=== PATIENT | male | born 1995 | race African-American/Black ===

== ENCOUNTER 2017-02-15 09:26 | Emergency (ER) | payer BC ==
[2017-02-15] MEDS ORDERED: Diphtheria,Pertussis(Acell),Tetanus Vaccine 0.5 ML Syringe IM ONE (09:37)
[2017-02-15] MEDS ORDERED: Lidocaine 1% 20 ML MDV INJECT ONE (09:37)
--- NOTE | 2017-02-15 10:01 | EDM.PDOC ---
ED HPI Skin/Rash - General Chief Complaint: Laceration Stated Complaint: CUT ON HAND Time Seen by Provider: 02/15/17 09:58 - History of Present Illness INITIAL COMMENTS - FREE TEXT/NARRATIVE: HISTORY AND PHYSICAL: History of present illness: 22-year-old white male presents with a laceration to his left forearm this occurred when he fell he denies any other trauma or concern tonight is up to date tetanus Review of systems: As per history of present illness and below otherwise all systems reviewed and negative. Past medical history: As per history of present illness and as reviewed below otherwise noncontributory. Surgical history: As per history of present illness and as reviewed below otherwise noncontributory. Social history: No reported history of drug or alcohol abuse. Family history: As per history of present illness and as reviewed below otherwise noncontributory. Physical exam: HEENT: Atraumatic, normocephalic, pupils reactive, negative for conjunctival pallor or scleral icterus, mucous membranes moist, throat clear, neck supple, nontender, trachea midline. Lungs: Clear to auscultation, breath sounds equal bilaterally, chest nontender. Heart: S1S2, regular, negative for clicks, rubs, or JVD. Abdomen: Soft, nondistended, nontender. Negative for masses or hepatosplenomegaly. Negative for costovertebral tenderness. Pelvis: Stable nontender. Genitourinary: Deferred. Rectal: Deferred. Extremities: Patient has an irregular moderate depth laceration volar aspect of distal third of his left forearm the length of this laceration is approximately 3 cm with good hemostasis noted involvement CMS neurovascular exam is unremarkable Neuro: Awake, alert, oriented. Cranial nerves II through XII unremarkable. Cerebellum unremarkable. Motor and sensory unremarkable throughout. Exam nonfocal. Diagnostics: None Therapeutics: 5 TD IM patient was anesthetized 1% lidocaine without epinephrine irrigated with copious amounts 0.9 normal saline prepped and draped in sterile manner closed with 4-0 interrupted suture bacitracin dressing was applied Impression: #1 laceration left forearm Definitive disposition and diagnosis as appropriate pending reevaluation and review of above. - Related Data Allergies Allergy/AdvReac Type Severity Reaction Status Date / Time Sulfa (Sulfonamide Allergy Other Verified 02/15/17 09:30 Antibiotics) Home Meds: Ambulatory Orders Medication Instructions Recorded Confirmed . [No Known Home Meds] 02/15/17 02/15/17 Past Medical History - Past Health History Medical/Surgical History: Denies Medical/Surgical History Social & Family History - Tobacco Use Smoking Status *Q: Never Smoker Second Hand Smoke Exposure: No - Caffeine Use Caffeine Use: Reports: Coffee, Soda - Recreational Drug Use Recreational Drug Use: No ED ROS GENERAL - Review of Systems Review Of Systems: ROS reveals no pertinent complaints other than HPI. ED EXAM, SKIN/RASH Exam: See Below (See dictation) Course - Vital Signs Last Recorded V/S: Last Vital Signs Temp 36.6 C 02/15/17 09:30 Pulse 86 02/15/17 09:30 Resp 18 02/15/17 09:30 BP 138/75 02/15/17 09:30 Pulse Ox 96 02/15/17 09:30 - Orders/Labs/Meds Orders: Active Orders 24 hr Category Date Time Status Vaccines to be Administered [RC] PER UNIT ROUTINE Care 02/15/17 09:38 Active Meds: Medications Discontinued Medications Generic Name Dose Route Start Last Admin Trade Name Tierra PRN Reason Stop Dose Admin Diphtheria/Tetanus/Acell Pertussis 0.5 ml 02/15/17 09:37 02/15/17 09:58 Adacel IM 02/15/17 09:38 0.5 ml .ONCE ONE Administration Lidocaine HCl 20 ml 02/15/17 09:37 02/15/17 09:58 Xylocaine 1% INJECT 02/15/17 09:38 20 ml ONETIME ONE Administration Departure - Departure Time of Disposition: 10:01 Disposition: Home, Self-Care 01 Condition: good Clinical Impression: Laceration Forms: ED Department Discharge Additional Instructions: The following information is given to patients seen in the emergency department who are being discharged to home. This information is to outline your options for follow-up care. We provide all patients seen in our emergency department with a follow-up referral. The need for follow-up, as well as the timing and circumstances, are variable depending upon the specifics of your emergency department visit. If you don't have a primary care physician on staff, we will provide you with a referral. We always advise you to contact your personal physician following an emergency department visit to inform them of the circumstance of the visit and for follow-up with them and/or the need for any referrals to a consulting specialist. The emergency department will also refer you to a specialist when appropriate. This referral assures that you have the opportunity for followup care with a specialist. All of these measure are taken in an effort to provide you with optimal care, which includes your followup. Under all circumstances we always encourage you to contact your private physician who remains a resource for coordinating your care. When calling for followup care, please make the office aware that this follow-up is from your recent emergency room visit. If for any reason you are refused follow-up, please contact the [facility] emergency department at and asked to speak to the emergency department charge nurse. Followup primary medical doctor 24-48 hours suture removal 10-14 days return as needed as discussed - My Orders Last 24 Hours: My Active Orders 02/15/17 09:38 Vaccines to be Administered [RC] PER UNIT ROUTINE - Assessment/Plan Last 24 Hours: My Active Orders 02/15/17 09:38 Vaccines to be Administered [RC] PER UNIT ROUTINE
[2017-02-15 10:32] VITALS: BP 144/65
== END 2017-02-15 10:15 | disposition home or self-care (01) ==
LOC: MW.ED 09:26
DX: S51.812A Laceration without foreign body of left forearm, initial encounter (principal); Z88.2 Allergy status to sulfonamides; Z23 Encounter for immunization; W10.9XXA Fall (on) (from) unspecified stairs and steps, initial encounter
CPT/HCPCS: 12002; 90471; 90715; 99282; 99282-25

== ENCOUNTER 2017-05-31 07:32 | Emergency (ER) | payer BC ==
[2017-05-31 07:55] VITALS: BP 158/67
--- NOTE | 2017-05-31 08:11 | EDM.PDOC ---
ED HPI GENERAL MEDICAL PROBLEM - General Chief Complaint: Skin Complaint Stated Complaint: RASH Time Seen by Provider: 05/31/17 08:04 - History of Present Illness INITIAL COMMENTS - FREE TEXT/NARRATIVE: HISTORY AND PHYSICAL: History of present illness: The patient is a healthy 22-year-old male who presents with complaints of a bump in his inguinal pubic area that has been there for several weeks. It has not been painful it has not drained any fluid and he says he has been practicing safe sex. He has no systemic complaints of fever chills burning with urination penile discharge testicular pain or swelling or abdominal complaints. He has no rashes elsewhere on his body. He has noticed a second one that surface just a few days ago and again not painful with no drainage. He otherwise has been eating and drinking normally and without fevers Review of systems: As per history of present illness and below otherwise all systems reviewed and negative. Past medical history: As per history of present illness and as reviewed below otherwise noncontributory. Surgical history: As per history of present illness and as reviewed below otherwise noncontributory. Social history: No reported history of drug or alcohol abuse. Family history: As per history of present illness and as reviewed below otherwise noncontributory. Physical exam: Gen.: Well-developed well-nourished man who is nontoxic and vital signs have been reviewed by me HEENT: Atraumatic, normocephalic, negative for conjunctival pallor or scleral icterus, mucous membranes moist, throat clear, neck supple, nontender, trachea midline. Lungs: Clear to auscultation, breath sounds equal bilaterally, chest nontender. Heart: S1S2, regular rate and rhythm no overt murmurs Abdomen: Soft, nondistended, nontender. NABS. Pelvis: Stable nontender. Genitourinary: There is no inguinal adenopathy redness, testicles are descended bilaterally without any swelling. There are 2 small firm punctate areas of raised skin which may represent a firm skin tag or a small wart. They're nontender and nonvesicular. Rectal: Deferred. Extremities: Atraumatic, negative for cords or calf pain. Neurovascular unremarkable. Neuro: Awake, alert, oriented. Cranial nerves II through XII unremarkable. Cerebellum unremarkable. Motor and sensory unremarkable throughout. Exam nonfocal. Diagnostics: [] Therapeutics: [] I discussed with the patient that he would need referral to our urologist for further evaluation and care of these as they may be simple skin tags or they may actually be a small genital wart. Impression: Pubic skin lesions stable Definitive disposition and diagnosis as appropriate pending reevaluation and review of above. - Related Data Allergies Allergy/AdvReac Type Severity Reaction Status Date / Time Sulfa (Sulfonamide Allergy Other Verified 05/31/17 07:48 Antibiotics) Home Meds: Home Meds . [No Known Home Meds] 02/15/17 [History] Past Medical History - Past Health History Medical/Surgical History: Denies Medical/Surgical History Hematologic History: Reports: Blood Transfusion(s) Other Hematologic History: states hx of trasnfusion when he was younger Social & Family History - Tobacco Use Smoking Status *Q: Current Every Day Smoker Years of Tobacco use: 1 Packs/Tins Daily: 1 Second Hand Smoke Exposure: No - Caffeine Use Caffeine Use: Reports: Energy Drinks - Recreational Drug Use Recreational Drug Use: No ED ROS GENERAL - Review of Systems Review Of Systems: ROS reveals no pertinent complaints other than HPI. ED EXAM, SKIN/RASH Exam: See Below (See dictation) Course - Vital Signs Last Recorded V/S: Last Vital Signs Temp 36.7 C 05/31/17 07:48 Pulse 89 05/31/17 07:48 Resp 16 05/31/17 07:48 BP 158/67 H 05/31/17 07:48 Pulse Ox 97 05/31/17 07:48 Departure - Departure Time of Disposition: 08:10 Disposition: Home, Self-Care 01 Condition: Good Clinical Impression: Skin lesion - Discharge Information Forms: ED Department Discharge Additional Instructions: The following information is given to patients seen in the emergency department who are being discharged to home. This information is to outline your options for follow-up care. We provide all patients seen in our emergency department with a follow-up referral. The need for follow-up, as well as the timing and circumstances, are variable depending upon the specifics of your emergency department visit. If you don't have a primary care physician on staff, we will provide you with a referral. We always advise you to contact your personal physician following an emergency department visit to inform them of the circumstance of the visit and for follow-up with them and/or the need for any referrals to a consulting specialist. The emergency department will also refer you to a specialist when appropriate. This referral assures that you have the opportunity for followup care with a specialist. All of these measure are taken in an effort to provide you with optimal care, which includes your followup. Under all circumstances we always encourage you to contact your private physician who remains a resource for coordinating your care. When calling for followup care, please make the office aware that this follow-up is from your recent emergency room visit. If for any reason you are refused follow-up, please contact the [facility] emergency department at and ask to speak to the emergency department charge nurse. [facility]- Internal Medicine [facility] [address] [place] [address] [id number] [facility] Specialty Care-Urology [address] [place] [id number] Please contact our clinic for further care and evaluation as well as our urologist for further definitive care and treatment of these problems. Return to ER as needed and as discussed
== END 2017-05-31 08:19 | disposition home or self-care (01) ==
LOC: MW.ED 07:32
DX: L98.9 Disorder of the skin and subcutaneous tissue, unspecified (principal); F17.210 Nicotine dependence, cigarettes, uncomplicated; Z88.2 Allergy status to sulfonamides
CPT/HCPCS: 99282